=== PATIENT | female | born 1990 | race Caucasian/White ===

== ENCOUNTER 2017-03-24 17:56 | Emergency (ER) | payer SELFPAY ==
--- NOTE | 2017-03-24 18:23 | ED ---
Lower Extremity - HPI Summary HPI Summary: 26-year-old female presents with right ankle pain today. She states she was stepping down and twisted her ankle. She has history of sprained ankles. She denies any numbness or tingling. She states is a deeper ache in her normal sprains. She hasn't taken anything for pain. Pain is 6 out of 10. Pain is worse with ambulation. She denies any other injury. She denies any knee pain. She has had to change the way she ambulates. - History of Current Complaint Chief Complaint: EDExtremityLower Stated Complaint: RT ANKLE INJURY Time Seen by Provider: 03/24/17 18:10 Pain Intensity: 5 - Allergies/Home Medications Allergies/Adverse Reactions: Allergies Allergy/AdvReac Type Severity Reaction Status Date / Time Sulfa Drugs Allergy Rash Verified 07/06/15 22:23 PMH/Surg Hx/FS Hx/Imm Hx Endocrine/Hematology History: Denies: Hx Anticoagulant Therapy Cardiovascular History: Denies: Hx Hypertension - Immunization History Date of Tetanus Vaccine: UTD Infectious Disease History: No Infectious Disease History: Denies: Traveled Outside the [place] in Last 30 Days - Family History Known Family History: Positive: None - Social History Alcohol Use: None Substance Use Type: Reports: None Smoking Status (MU): Never Smoked Tobacco Review of Systems Negative: Fever Negative: Chest Pain Negative: Shortness Of Breath Positive: Myalgia - right ankle pain All Other Systems Reviewed And Are Negative: Yes Physical Exam Triage Information Reviewed: Yes Vital Signs On Initial Exam: Initial Vitals Temp Pulse Resp BP Pulse Ox 98.0 F 82 18 133/88 96 03/24/17 18:06 03/24/17 18:06 03/24/17 18:06 03/24/17 18:06 03/24/17 18:06 Vital Signs Reviewed: Yes Appearance: Positive: Well-Appearing Skin: Positive: Warm, Dry Head/Face: Positive: Normal Head/Face Inspection Eyes: Positive: Normal, Conjunctiva Clear Respiratory/Lung Sounds: Positive: Clear to Auscultation, Breath Sounds Present Cardiovascular: Positive: Normal, RRR Musculoskeletal: Positive: Limited @ - right ankle due to pain, Edema Right - mild, Other - tenderness over medial and lateral malleolus, good pulses, capillary refill<2secs Neurological: Positive: Normal Psychiatric: Positive: Normal Diagnostics - Vital Signs Vital Signs Temp Pulse Resp BP Pulse Ox 03/24/17 18:06 98.0 F 82 18 133/88 96 - Laboratory Lab Statement: Any lab studies that have been ordered have been reviewed, and results considered in the medical decision making process. - Radiology ankle Xray Interpretation: Positive (See Comments) - IMPRESSION: SMALL AVULSION FRACTURE FRAGMENT ARISING FROM THE TIP OF THE LATERAL MALLEOLUS. Radiology Interpretation Completed By: Radiologist Lower Extremity Course/Dx - Course Course Of Treatment: 26-year-old female presents with right ankle pain today. She states she was stepping down and twisted her ankle. She has history of sprained ankles. She denies any numbness or tingling. She states is a deeper ache in her normal sprains. She hasn't taken anything for pain. Pain is 6 out of 10. Pain is worse with ambulation. She denies any other injury. She denies any knee pain. She has had to change the way she ambulates. On exam tender over the lateral and medial malleolus. Neurovascularly intact. X-ray shows avulsion fracture on the lateral malleolus. Will treat as bad sprain. Will have follow-up with primary. Will have follow-up with orthopedic no improvement. Treated with rice. Patient understands and agrees with plan. - Diagnoses Differential Diagnosis/HQI/PQRI: Positive: Fracture (Closed), Sprain, Strain Provider Diagnoses: Avulsion fracture of lateral malleolus Discharge - Discharge Plan Condition: Good Disposition: HOME Patient Education Materials: Ankle Sprain (ED) Forms: *Work Release Referrals: [facility] [Outside] Additional Instructions: Stay off ankle as much as possible Ice, elevate, keep in LISE Ibuprofen every 6 hours for pain Follow up with primary if no improvement Return to ED if develop or any new or worsening symptoms
--- NOTE | 2017-03-24 18:44 | RAD ---
INDICATION: Right ankle injury. TECHNIQUE: 3 views of the right ankle were obtained. FINDINGS: There is anterolateral soft tissue swelling. There is a small linear avulsion fracture fragment arising from the tip of the lateral malleolus. IMPRESSION: SMALL AVULSION FRACTURE FRAGMENT ARISING FROM THE TIP OF THE LATERAL MALLEOLUS.
[2017-03-24 19:21] VITALS: BP 157/99
== END 2017-03-24 19:16 | disposition home or self-care (01) ==
LOC: ED 17:56
DX: S82.61XA Displaced fracture of lateral malleolus of right fibula, initial encounter for closed fracture (principal); M25.571 Pain in right ankle and joints of right foot; X50.0XXA Overexertion from strenuous movement or load, initial encounter; Y92.9 Unspecified place or not applicable
CPT/HCPCS: 99282

== ENCOUNTER 2017-04-08 19:15 | Emergency (ER) | payer BC ==
[2017-04-08] MEDS ORDERED: predniSONE TAB* 20 MG PO ONE (22:04)
[2017-04-08] MEDS ORDERED: hydrOXYzine HCL TAB* 50 MG PO ONE (22:04)
[2017-04-08] MEDS ORDERED: Famotidine TAB* 20 MG PO ONE (22:05)
--- NOTE | 2017-04-08 23:16 | ED ---
Faisal Thompson Thomas, scribed for Yahaira Wade MD on 04/08/17 at 2256 . Skin Complaint - HPI Summary HPI Summary: The patient is a 26 year old female presenting with itchy rashes to her neck and right thigh that began yesterday and have been gradually worsening. The patient has been taking Contrave for the last month for weight loss. She complains of chest tightness and pressure. She does not have a history of asthma. She is wearing a boot on her right foot due to an avulsion fracture on her right ankle. - History of Current Complaint Chief Complaint: EDShortnessOfBreath Time Seen by Provider: 04/08/17 21:56 Stated Complaint: RASH/DIFFICULTY SWALLOW Hx Obtained From: Patient Onset/Duration: Started Days Ago - 1, Still Present Timing: Constant Current Severity: Moderate Pain Intensity: 0 Pain Scale Used: 0-10 Numeric Skin Location: Other: - Neck, right thigh Character: Pruritus Aggravating Symptom(s): Nothing Alleviating Symptom(s): Nothing Related History: Other: - Taking contrave for last week - Allergy/Home Medications Allergies/Adverse Reactions: Allergies Allergy/AdvReac Type Severity Reaction Status Date / Time Sulfa (Sulfonamide Allergy Rash Verified 04/08/17 19:25 Antibiotics) PMH/Surg Hx/FS Hx/Imm Hx Endocrine/Hematology History: Denies: Hx Anticoagulant Therapy Cardiovascular History: Denies: Hx Hypertension EENT History: Denies: Hx Deafness - Immunization History Date of Tetanus Vaccine: UTD Infectious Disease History: No Infectious Disease History: Denies: Traveled Outside the [place] in Last 30 Days - Family History Known Family History: Positive: Other - Patient denies FHx relevant disease - Social History Alcohol Use: None Substance Use Type: Reports: None Smoking Status (MU): Never Smoked Tobacco Review of Systems Negative: Fever Positive: Other - Chest tightness and pressure Positive: Rash All Other Systems Reviewed And Are Negative: Yes Physical Exam - Summary Physical Exam Summary: VITAL SIGNS: Reviewed. GENERAL: Patient is a well-developed and nourished MALE who is lying comfortable in the stretcher. Patient is not in any acute respiratory distress. HEAD AND FACE: No signs of trauma. No ecchymosis, hematomas or skull depressions. No sinus tenderness. EYES: PERRLA, EOMI x 2, No injected conjunctiva, no nystagmus. EARS: Hearing grossly intact. Ear canals and tympanic membranes are within normal limits. MOUTH: Oropharynx within normal limits. NECK: Supple, trachea is midline, no adenopathy, no JVD, no carotid bruit, no c- spine tenderness, neck with full ROM. CHEST: Symmetric, no tenderness at palpation LUNGS: Clear to auscultation bilaterally. No wheezing or crackles. CVS: Regular rate and rhythm, S1 and S2 present, no murmurs or gallops appreciated. ABDOMEN: Soft, non-tender. No signs of distention. No rebound no guarding, and no masses palpated. Bowel sounds are normal. EXTREMITIES: FROM in all major joints, no edema, no cyanosis or clubbing. NEURO: Alert and oriented x 3. No acute neurological deficits. Speech is normal and follows commands. SKIN: She has a maculo-papular rash when welts. Triage Information Reviewed: Yes Vital Signs On Initial Exam: Initial Vitals Temp Pulse Resp BP Pulse Ox 97.4 F 117 18 124/87 98 04/08/17 19:20 04/08/17 19:20 04/08/17 19:20 04/08/17 19:20 04/08/17 19:20 Vital Signs Reviewed: Yes Diagnostics - Vital Signs Vital Signs Temp Pulse Resp BP Pulse Ox 04/08/17 19:20 97.4 F 117 18 124/87 98 - Laboratory Lab Statement: Any lab studies that have been ordered have been reviewed, and results considered in the medical decision making process. Course/Dx - Course Assessment/Plan: The patient is a 26 year old female presenting with itchy rashes to her neck and right thigh that began yesterday and have been gradually worsening. She has a maculo-papular rash with welts. The patient was given Pepcid, Atarax, and prednisone. The patient is discharged home with primary care follow up. Diagnosis is allergic reaction. - Diagnoses Provider Diagnoses: Allergic reaction Discharge - Discharge Plan Condition: Stable Disposition: HOME Prescriptions: hydrOXYzine HCL TAB* [Atarax TAB 50 MG *] 50 mg PO TID PRN #20 tab PRN Reason: Itching predniSONE TAB* [Deltasone TAB*] 40 mg PO DAILY #10 tab Patient Education Materials: General Allergic Reaction (ED) Referrals: Shirley Díaz MD [Medical Doctor] - 3 Days Additional Instructions: Follow up with your primary care physician in three days. Return to the emergency department for any new or worsening symptoms. The documentation as recorded by the Faisal almodovar Thomas accurately reflects the service I personally performed and the decisions made by , Yahaira Wade MD.
[2017-04-08 23:19] VITALS: BP 133/72
== END 2017-04-08 23:20 | disposition home or self-care (01) ==
LOC: ED 19:15
DX: T78.40XA Allergy, unspecified, initial encounter (principal); Z88.2 Allergy status to sulfonamides
CPT/HCPCS: 99282; A9270-GY; J7512